=== PATIENT | female | born 1965 | race Two or more races ===

== ENCOUNTER 2024-01-15 16:10 | Emergency (ER) | payer OTHER ==
[~2024-01-15] VITALS: Ht 157.5 cm; Wt 87.0 kg
[2024-01-15 16:28] VITALS: O2SAT 100
[2024-01-15 17:15] VITALS: BP 203/105; PULSE 69; RESP 18; TEMP 97.9
== END 2024-01-15 17:22 | disposition left against medical advice (07) ==
LOC: ER 16:10
DX: R53.1 Weakness (principal); Z53.21 Procedure and treatment not carried out due to patient leaving prior to being seen by health care provider
CPT/HCPCS: 99281